=== PATIENT | male | born 1990 | race Caucasian/White ===

== ENCOUNTER 2016-11-10 10:35 | Emergency (ER) | payer BC ==
[2016-11-10 10:36] VITALS: BMI 42.0
[2016-11-10 10:49] VITALS: TEMP 99.2
[2016-11-10] MEDS ORDERED: Erythromycin 0.5% Ophth Oint 1 APPLIC/3.5 G OS ONE (11:28)
[2016-11-10] MEDS ORDERED: Amoxicillin-Clav 875-125 mg Tab PO STA (11:30)
--- NOTE | 2016-11-10 11:34 | ED PDOC ---
Arrival/HPI - General Chief Complaint: Eye Problem Time Seen by Provider: 11/10/16 11:16 Historian: Patient - History of Present Illness Narrative History of Present Illness (Text): 11/10/16 11:31 This 26 yo male presents to this ED c/o left eye infection x 4 days. Patient stated he was seen at a local urgent care x 2 days ago, and he was prescribed Tobramycin Ophthalmic Beena. Patient stated eye infection is getting worse. Patient denies eye pain, or vision changes. Time/Duration: Other (4 days) Context: Home Past Medical History - Provider Review Nursing Documentation Reviewed: Yes - Infectious Disease Hx of Infectious Diseases: None - Cardiac Hx Cardiac Disorders: No - Pulmonary Hx Respiratory Disorders: No - Neurological Hx Neurological Disorder: No - HEENT Other/Comment: EYE INFECTION - Renal Hx Renal Disorder: No - Endocrine/Metabolic Hx Endocrine Disorders: No - Hematological/Oncological Hx Blood Disorders: No - Integumentary Hx Dermatological Disorder: No - Musculoskeletal/Rheumatological Hx Musculoskeletal Disorders: No Hx Falls: No - Gastrointestinal Hx Gastrointestinal Disorders: No - Genitourinary/Gynecological Hx Genitourinary Disorders: No - Psychiatric Hx Psychophysiologic Disorder: No Hx Substance Use: Yes (DENIES CURRENT USE OF CANNABIS) - Surgical History Hx Appendectomy: Yes Hx Eye Surgery: Yes - Anesthesia Hx Anesthesia: Yes Hx Anesthesia Reactions: No Hx Malignant Hyperthermia: No Family/Social History - Physician Review Nursing Documentation Reviewed: Yes Family/Social History: No Known Family HX Smoking Status: marijuana Hx Alcohol Use: Yes Hx Substance Use: Yes (DENIES CURRENT USE OF CANNABIS) Allergies/Home Meds Allergies/Adverse Reactions: Allergies No Known Allergies Allergy (Verified 11/10/16 10:42) Home Medications: Home Meds Medication Instructions Recorded Confirmed Tobramycin 0.3% [Tobrex 0.3% Ophth 1 drop OS Q4 11/10/16 11/10/16 Soln] Review of Systems - Review of Systems Constitutional: Normal. absent: Fatigue, Weight Change, Fevers, Night Sweats Eyes: Other (Left eye infection) ENT: Normal Respiratory: Normal Cardiovascular: Normal Gastrointestinal: Normal Genitourinary Male: Normal Musculoskeletal: Normal Skin: Normal Neurological: Normal Endocrine: Normal Hemo/Lymphatic: Normal Psychiatric: Normal Physical Exam Vital Signs Temp Pulse Resp BP Pulse Ox 11/10/16 10:44 99.2 F 90 16 125/82 96 Temperature: Afebrile Blood Pressure: Normal Pulse: Regular Respiratory Rate: Normal Appearance: Positive for: Well-Appearing, Non-Toxic, Comfortable Pain Distress: None Mental Status: Positive for: Alert and Oriented X 3 - Systems Exam Head: Present: Atraumatic, Normocephalic Pupils: Present: PERRL Extroacular Muscles: Present: EOMI. No: Entrapment Conjunctiva: Present: Injected, Other (with trace discharge) Mouth: Present: Moist Mucous Membranes Neck: Present: Normal Range of Motion Respiratory/Chest: Present: Clear to Auscultation, Good Air Exchange. No: Respiratory Distress, Accessory Muscle Use, Wheezes, Retracting, Rhonchi Cardiovascular: Present: Regular Rate and Rhythm, Normal S1, S2. No: Murmurs Upper Extremity: Present: Normal Inspection, Normal ROM, NORMAL PULSES, Neurovascularly Intact, Capillary Refill < 2s Lower Extremity: Present: Normal Inspection, NORMAL PULSES, Neurovascularly Intact, Capillary Refill < 2 s. No: Edema, CALF TENDERNESS Neurological: Present: GCS=15, CN II-XII Intact, Speech Normal Skin: Present: Warm, Dry, Normal Color. No: Rashes Psychiatric: Present: Alert, Oriented x 3 Medical Decision Making ED Course and Treatment: 11/10/16 11:[address] Herrera service secretary "Mercedes". He said Dr. Herrera is off today, and tomorrow. He will have office hours in 3 days. She gave me an appointment for patient for November 13 at 8 am. Re-evaluation Time: 11:56 Reassessment Condition: Re-examined, Improved - Medication Orders Current Medication Orders: Discontinued Medications Amoxicillin/Clavulanate Potassium (Augmentin 875 Mg-125 Mg Tab) 1 tab PO STAT STA PRN Reason: Protocol Stop: 11/10/16 11:31 Last Admin: 11/10/16 11:48 Dose: 1 tab Erythromycin (Erythromycin) 1 applic OS ONCE ONE Stop: 11/10/16 11:29 Last Admin: 11/10/16 11:48 Dose: 1 applic Disposition/Present on Arrival - Present on Arrival Any Indicators Present on Arrival: No History of DVT/PE: No History of Uncontrolled Diabetes: No Urinary Catheter: No History of Decub. Ulcer: No History Surgical Site Infection Following: None - Disposition Have Diagnosis and Disposition been Completed?: Yes Diagnosis: Conjunctivitis Disposition: HOME/ ROUTINE Disposition Time: 11:56 Patient Plan: Discharge Condition: GOOD Discharge Instructions (ExitCare): Conjunctivitis (ED) Additional Instructions: Dr. Herrera Wood Turner will be able to see you this TuesdayNovember 13 at 8 am. You may need to be there 15 minutes prior for possible paperwork. Take medication as instructed. return to emergency if symptoms worsen. Eye antibiotic ointment could be used up to 6 times a day for 7-10 days. STOP USING TOBRAMYCIN EYE DROPS WHILE USING VIGAMOX Prescriptions: Amoxicillin/Clavulanate [Augmentin 875 MG-125 MG] 1 tab PO BID #14 tab Moxifloxacin HCl [Vigamox 3 ml] 1 drop OS TID #1 bottle Referrals: PCP,NO [Primary Care Provider] - Follow up with primary Brian Herrera MD [Staff Provider] - Follow up with primary Dmitri Barnes DO [Staff Provider] - Follow up with primary Forms: WORK NOTE
[2016-11-10 12:15] VITALS: BP 123/79; PULSE 89; RESP 18; O2SAT 97
== END 2016-11-10 12:19 | disposition home or self-care (01) ==
LOC: ED 10:35
DX: H10.9 Unspecified conjunctivitis (principal)